=== PATIENT | female | born 1935 | race African-American/Black ===

== ENCOUNTER 2019-04-25 07:48 | Inpatient (IN) ==
[2019-04-25] MEDS ORDERED: SODIUM CHLORIDE 0.9% 1,000 ML IV STA ×2 (08:04→11:20)
[2019-04-25 08:35] LABS: INR 1.1; PT Patient Result 12.1 SECS; Partial Thromboplastin Time 27.2 SECS (0-40)
[2019-04-25 08:41] LABS: Apearance,Urine CLOUDY (Clear); Bilirubin,Urine Negative (Negative); Blood, Urine Negative (Negative); Glucose,Urine (UA) Negative (Negative); Hyaline Casts,Urine 23 /LPF (0-3); Ketones,Urine Negative (Negative); Mucus,Urine Few /LPF (Occasional); Nitrite,Urine Negative (Negative); Protein,Urine 30 MG/DL; RBC,Urine 3 /HPF (0-4); Squamous Epithelial Cell,Urine Occasional /HPF (0-10); Urine Color Amber (Yellow); Urine Specific Gravity 1.026 (1.001-1.035); WBC,Urine 8 /HPF (0-6)
[2019-04-25 08:44] LABS: Basophils # 0.1 10*3/uL (0.0-0.2); Basophils % 0.3 % (0.0-0.8); Eosinophils # 0.5 10*3/uL (0.0-0.87); Eosinophils % 2.2 % (0.00-10.9); Hematocrit 45.2 VOL% (35.7-47.0); Immature Granulocytes % 0.8 %; Lymphocytes # 2.3 10*3/uL (1.4-4.0); Lymphocytes % 9.6 % (21.3-54.2); Mean Corpuscular HGB Conc 30.1 GM/DL (32-36); Mean Corpuscular Volume 87.1 FL (87-102); Mean Platelet Volume 12.7 FL (9.6-12.0); Monocytes % 4.1 % (1.7-12.7); Platelet Count 236 T/CUMM (130-400); Red Blood Count 5.19 MC/CUMM (3.8-5.5); Red Cell Distribution Width 18.8 % (9.3-17.3); White Blood Count 23.5 T/CUMM (4-12)
[2019-04-25 08:47] LABS: Albumin 2.1 G/DL (3.4-5.0); Bilirubin,Total 0.7 MG/DL (0.2-1.0); Calcium 8.9 MG/DL (8.5-10.1); Hemoglobin 13.6 GM/DL (12.0-16.0); Osmolality,Calculated 302.1 MOS/KG (273-304); Total Protein 6.8 G/DL (6.4-8.3)
[2019-04-25 08:50] LABS: Eosinophils 7 % (0-10); Hypochromasia 1+; Lymphocytes 4 % (20-55); Platelet Estimate Adequate; Segmented Neutrophils 88 % (50-85); Total Cells Counted 100
[2019-04-25 08:51] LABS: Barbiturates Screen,Urine Negative (Negative); Benzodiazepines Screen,Urine Negative (Negative); Cannabinoid Screen,Urine Negative (Negative); Opiate Screen,Urine Negative (Negative); Phencyclidine Screen,Urine Negative (Negative)
[2019-04-25] MEDS ORDERED: LEVOFLOXACIN INJ 500 MG in PREMIX 1 EACH IV STA (09:45)
[2019-04-25] MEDS ORDERED: BISACODYL 5 MG TABLET PO PRN (12:57)
[2019-04-25] MEDS ORDERED: ONDANSETRON 4 MG/2 ML VIAL IV PRN (12:57)
[2019-04-25] MEDS ORDERED: diphenhydrAMINE CAP 25 MG CAPSULE PO PRN (12:57)
[2019-04-25] MEDS ORDERED: guaiFENesin/DM ER 600-30 MG TABLET PO PRN (12:57)
[2019-04-25] MEDS ORDERED: ACETAMINOPHEN 325 MG TABLET PO PRN (12:57)
[2019-04-25] MEDS ORDERED: DOCUSATE SODIUM 100 MG CAPSULE PO PRN (12:57)
[2019-04-25] MEDS: ENOXAPARIN 40 MG/0.4 ML SYRINGE SUBCUT SCH (13:31)
[2019-04-25] MEDS ORDERED: DEXTROSE 50% 25 GM/50 ML VIAL IV PRN (16:03)
[2019-04-25] MEDS ORDERED: GLUCAGON 1 MG VIAL IM PRN (16:03)
[2019-04-26 05:53] LABS: Basophils # 0.1 10*3/uL (0.0-0.2); Basophils % 0.2 % (0.0-0.8); Eosinophils # 0.7 10*3/uL (0.0-0.87); Eosinophils % 3.1 % (0.00-10.9); Hematocrit 40.9 VOL% (35.7-47.0); Immature Granulocytes % 0.8 %; Immature Granulocytes Absolute 0.18 #; Lymphocytes # 1.4 10*3/uL (1.4-4.0); Lymphocytes % 6.5 % (21.3-54.2); Mean Corpuscular HGB Conc 29.3 GM/DL (32-36); Mean Corpuscular Volume 88.1 FL (87-102); Mean Platelet Volume 12.6 FL (9.6-12.0); Monocytes % 4.6 % (1.7-12.7); Neutrophils % 84.8 % (38.7-73.9); Platelet Count 200 T/CUMM (130-400); Red Blood Count 4.64 MC/CUMM (3.8-5.5); Red Cell Distribution Width 18.6 % (9.3-17.3); White Blood Count 21.2 T/CUMM (4-12)
[2019-04-26 06:00] LABS: Anisocytosis 1+; Band Neutrophils 5 % (0-10); Eosinophils 4 % (0-10); Ovalocytes 1+; Platelet Estimate Adequate; Segmented Neutrophils 89 % (50-85); Total Cells Counted 100
[2019-04-26 06:05] LABS: Calcium 8.5 MG/DL (8.5-10.1); Osmolality,Calculated 303.7 MOS/KG (273-304); Prealbumin 10.5 MG/DL (20-40)
[2019-04-26 06:11] LABS: Albumin 1.8 G/DL (3.4-5.0); Bilirubin,Total 0.7 MG/DL (0.2-1.0); Calcium 8.4 MG/DL (8.5-10.1); Osmolality,Calculated 308.4 MOS/KG (273-304); Total Protein 5.4 G/DL (6.4-8.3)
[2019-04-26] MEDS: INSULIN REGULAR 100 UNIT/ML SUBCUT SCH ×3 (07:46→17:31)
[2019-04-26] MEDS: PANTOPRAZOLE 40 MG TABLET PO SCH (10:11)
[2019-04-26] MEDS: LEVOFLOXACIN INJ 500 MG in PREMIX 1 EACH IV SCH (11:50)
[2019-04-26] MEDS: ENOXAPARIN 40 MG/0.4 ML SYRINGE SUBCUT SCH (13:22)
[2019-04-27] MEDS: INSULIN REGULAR 100 UNIT/ML SUBCUT SCH ×3 (06:17→13:41)
[2019-04-27] MEDS: PANTOPRAZOLE 40 MG TABLET PO SCH (08:44)
[2019-04-27 10:38] LABS: Calcium 8.3 MG/DL (8.5-10.1); Osmolality,Calculated 302.1 MOS/KG (273-304)
[2019-04-27] MEDS: LEVOFLOXACIN INJ 500 MG in PREMIX 1 EACH IV SCH (13:12)
[2019-04-27] MEDS: ENOXAPARIN 40 MG/0.4 ML SYRINGE SUBCUT SCH (13:41)
[2019-04-27 15:31] VITALS: BP 109/60
== END 2019-04-27 17:40 | disposition home health service (06) | DRG 206 ==
LOC: EDBD → EDUNIT# → N.ED 07:48 → SUATTDRO 09:49 → N.EDINP 09:49 → N.5E 19:17
PROVIDERS: ADMIT Internal Medicine; ATTEND Hospitalist